=== PATIENT | female | born 2000 ===

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

== ENCOUNTER 2024-09-21 09:49 | Outpatient (RCR) | payer OTHER, SELFPAY | END 2024-11-08 11:20 | disposition home or self-care (01) | LOC: HO.PT 09:49 | PROVIDERS: PCP Internal Medicine; Visit Provider Midwife | DX: M54.50 Low back pain, unspecified (principal); Z98.890 Other specified postprocedural states | CPT/HCPCS: 97110; 97140; 97161; 97530; 97535 ==